=== PATIENT | male | born 1985 | race Caucasian/White ===

== ENCOUNTER → 2018-10-20 | Outpatient (REF) | payer OTHER | LOC: M LAB REF 12:39 | DX: J01.90 Acute sinusitis, unspecified (principal) ==

== ENCOUNTER 2021-02-23 07:45 | Emergency (ER) | payer BC, OTHER ==
[~2021-02-23] VITALS: Ht 188 cm; Wt 97.7 kg
[2021-02-23] MEDS ORDERED: VITMTA PO (08:03)
[2021-02-23] MEDS ORDERED: KETOROLAC 30 MG/ML 1ML VIAL IV ONE (08:50)
[2021-02-23] MEDS ORDERED: ACETAMINOPHEN 500 MG TAB PO ONE (08:50)
[2021-02-23] MEDS ORDERED: METOCLOPRAMIDE INJ 10MG/2ML VIAL (J2765 PER 1) IV ONE (08:50)
[2021-02-23] MEDS ORDERED: NS 1,000 ML IV ONE (08:50)
--- NOTE | 2021-02-23 09:13 | REP ---
INDICATION: R orbital headache, unequal pupils. COMPARISON: None. TECHNIQUE: Axial CT images with multiplanar reformations. FINDINGS: No acute bleed or acute large vessel territorial infarct. Ventricles, cisterns and sulci are within normal limits. No mass effect or midline shift. No abnormal fluid collections. Paranasal sinuses and mastoid air cells are clear IMPRESSION: No acute findings. <Electronically signed by Ruy Judd > 02/23/21 0909
[2021-02-23 09:18] LABS: BASO % 0.7 % (0.0-1.0); EOS # 0.1 10^3/uL (0.0-0.5); EOS % 1.5 % (0.0-3.0); HEMATOCRIT 45.6 % (42.0-52.0); HEMOGLOBIN 14.5 g/dl (13.5-17.5); LYMPH # 1.9 10^3/uL (1.5-5.0); LYMPH % 31.5 % (24.0-44.0); MEAN CORPUSCULAR HEMOGLOBIN 28.7 pg (27.0-33.0); MEAN CORPUSCULAR HGB CONC 31.8 g/dl (32.0-36.5); MEAN CORPUSCULAR VOLUME 90.3 fl (80.0-96.0); MONO # 0.6 10^3/uL (0.0-0.8); MONO % 10.3 % (2.0-8.0); NEUTROPHILS # 3.3 10^3/uL (1.5-8.5); NEUTROPHILS % 55.8 % (36.0-66.0); PLATELET COUNT, AUTOMATED 246 10^3/uL (150-450); RED BLOOD COUNT 5.05 10^6/uL (4.30-6.10); WHITE BLOOD COUNT 5.9 10^3/uL (4.0-10.0)
[2021-02-23] MEDS ORDERED: TETRACAINE 0.5% OPHTH SOLN 4ML OD ONE (09:25)
[2021-02-23 09:54] LABS: BLOOD UREA NITROGEN 17 MG/DL (7-18); CALCIUM LEVEL 9.9 MG/DL (8.5-10.1); CARBON DIOXIDE LEVEL 29 MEQ/L (21-32); CHLORIDE LEVEL 105 MEQ/L (98-107); CREATININE FOR GFR 0.88 MG/DL (0.70-1.30); GLOMERULAR FILTRATION RATE > 60.0 (>60); GLUCOSE, FASTING 100 MG/DL (70-100); POTASSIUM SERUM 4.4 MEQ/L (3.5-5.1); SODIUM LEVEL 138 MEQ/L (136-145)
[2021-02-23 11:13] VITALS: BP 138/89
== END 2021-02-23 11:22 | disposition home or self-care (01) ==
LOC: M ED 07:45
DX: G43.109 Migraine with aura, not intractable, without status migrainosus (principal); H52.209 Unspecified astigmatism, unspecified eye
CPT/HCPCS: 70450; 80048; 85025; 96361; 96374; 96375; 99284; J1885; J2765

== ENCOUNTER → 2023-09-12 | Outpatient (CLI) | payer BC, OTHER ==
[~2023-09-12] MED LIST: VITMTA PO
== END ==
LOC: M RAD 11:32
PROVIDERS: ATTEND Family Medicine
DX: G54.0 Brachial plexus disorders (principal); M75.42 Impingement syndrome of left shoulder

== ENCOUNTER → 2024-10-19 | Outpatient (CLI) | payer BC | LOC: M SLEEP HO 10:49 | PROVIDERS: ATTEND Physician Assistant | DX: R06.83 Snoring (principal); G47.30 Sleep apnea, unspecified ==